=== PATIENT | male | born 1940 | race Caucasian/White ===

== ENCOUNTER 2018-04-23 20:00 | Observation (INO) | payer BC, MEDICARE ==
[2018-04-23 20:38] LABS: ABS Basophils 0.1 10^3/ul (0-0.2); ABS Eosinophils 0.2 10^3/ul (0-0.6); ABS Monocytes 0.5 10^3/ul (0-0.8); ABS Neutrophils 4.8 10^3/ul (1.5-7.7); ABS Nucleated RBC 0 10^3/ul; Eosinophil % 2.1 %; Hematocrit 41 % (42-52); Lymphocyte % 26.9 %; Mean Corpuscular HGB Conc 34 g/dl (31-36); Mean Corpuscular Hemoglobin 27 pg (27-31); Mean Corpuscular Volume 80 fL (80-94); Mean Platelet Volume 8.4 fL (7.4-10.4); Nucleated Red Blood Cells % 0; Platelet Count 199 10^3/ul (150-450); Red Blood Count 5.14 10^6/ul (4.00-5.40); Red Cell Distribution Width 15 % (10.5-15); White Blood Count 7.6 10^3/ul (3.5-10.8)
[2018-04-23 20:43] LABS: INR 0.95 (0.77-1.02)
[2018-04-23 20:59] LABS: Albumin 3.8 g/dL (3.2-5.2); Albumin/Globulin Ratio 1.4 (1-3); C Reactive Protein 3.58 mg/L (<8.01); Calcium 9.2 mg/dL (8.6-10.3); EGFR Non-African American 55.9 (>60); Globulin 2.7 g/dL (2-4); Potassium 3.5 mmol/L (3.5-5.0); Total Bilirubin 0.7 mg/dL (0.2-1.0); Total Protein 6.5 g/dL (6.4-8.9)
[2018-04-23] MEDS ORDERED: Ondansetron INJ* 2 MG/ML VIAL ONE (21:01)
[2018-04-23] MEDS ORDERED: Ondansetron INJ* 2 MG/ML VIAL IV ONE (21:03)
[2018-04-23 21:22] LABS: TSH (Thyroid Stimulating Horm) 8.96 mcIU/mL (0.34-5.60)
[2018-04-23] MEDS ORDERED: NS 0.9% 500 ML* 500 ML IV ONE (21:26)
[2018-04-23] MEDS ORDERED: Dextrose 50% Syringe 50 ML* 25 GM/50 ML SYRINGE IV PUSH PRN (23:18)
[2018-04-23] MEDS ORDERED: Senna TAB PO PRN (23:23)
[2018-04-23] MEDS ORDERED: Acetaminophen TAB* 325 MG PO PRN (23:23)
[2018-04-23] MEDS ORDERED: Ondansetron INJ* 2 MG/ML VIAL IV PRN (23:23)
[2018-04-23] MEDS ORDERED: Docusate CAP* 100 MG PO PRN (23:23)
[2018-04-23] MEDS ORDERED: Al Hydrox/Mg Hydrox/Simet LIQ* 30 ML UDC PO PRN (23:23)
[2018-04-23] MEDS ORDERED: Insulin GLARGINE(*) 1 UNITS UNIT SUBCUT SCH (23:45)
[2018-04-24 00:27] LABS: Free T4 1.1 ng/dL (0.61-1.12)
--- NOTE | 2018-04-24 02:24 | ED ---
Syncope/Near Syncope - HPI Summary HPI Summary: Patient complains of episode of syncope while sitting at the dining room table eating dinner tonight. Family states patient stopped responding, and suddenly looked pale. Family helped patient to the ground where he became unresponsive with eyes open staring off into space. Episode lasted for a couple minutes, and then patient came too and stated with unclear speech that he felt like he had to throw up. Family states patient has been reacting slowly and speaking slowly since event, but seemed to know where he was and recognizes everyone around him upon returning to consciousness. Patient denies any active symptoms at this time, denies any prior symptoms. Family states possible slurred speech , but denies any facial droop, observed focal deficits. Patient himself denies any focal deficits.. Patient medical history is prior CVA 4 years ago, DM, HTN , HDL, hypothyroid. Patient on aspirin 325 makes daily. Patient also states he took his Levemir and his Humalog at the same time this afternoon, normally takes Levemir in the a.m. Patient's are traveling from out of town. Family states patient ate less today than usual. EMS BGL 159. - History Of Current Complaint Chief Complaint: EDSyncope Time Seen by Provider: 04/23/18 20:15 Hx Obtained From: Patient, Family/Corporate Investigator Onset/Duration: Sudden Onset Timing: Minutes Context: Witnessed Activity At Onset: At Rest Associated Head Trauma: No Aggravating Factor(s): Nothing Alleviating Factor(s): Spontaneous Resolution - Allergies/Home Medications Allergies/Adverse Reactions: Allergies Allergy/AdvReac Type Severity Reaction Status Date / Time No Known Allergies Allergy Verified 04/23/18 20:06 Home Medications: Home Medications Aspirin EC TAB* [Ecotrin EC TAB*] 1 tab PO DAILY 04/23/18 [History Confirmed ] Doxazosin XL (NF) [Cardura XL (NF)] 4 mg PO BEDTIME 04/23/18 [History Confirmed 04/23/18] Esomeprazole Magnesium [Nexium 24Hr] 20 mg PO 1700 04/23/18 [History Confirmed 04/23/18] Insulin Detemir (NF) [Levemir (NF)] 20 unit SUBCUT BID 04/23/18 [History Confirmed 04/23/18] Insulin LISPRO* [HumaLOG*] 0 units SUBCUT DIRECTED 04/23/18 [History Confirmed 04/23/18] Levothyroxine TAB* [Synthroid TAB*] 25 mcg PO DAILY 04/23/18 [History Confirmed 04/23/18] Lipitor 1 tab PO BEDTIME 04/23/18 [History Confirmed 04/23/18] Lisinopril 40 mg PO DAILY 04/23/18 [History Confirmed 04/23/18] Metoprolol Succinate [Metoprolol Succinate ER] 25 mg PO DAILY 04/23/18 [History Confirmed 04/23/18] Niacin 500 mg Softgel 1 tab PO BEDTIME 04/23/18 [History Confirmed 04/23/18] Timolol Maleate [Istalol] 5 ml LEFT EYE 0800 04/23/18 [History Confirmed ] Travoprost [Travatan Z] 5 ml LEFT EYE BEDTIME 04/23/18 [History Confirmed ] amLODIPine TAB* [Norvasc 5 mg TAB*] 10 mg PO DAILY 04/23/18 [History Confirmed 04/23/18] PMH/Surg Hx/FS Hx/Imm Hx Endocrine/Hematology History: Denies: Hx Anticoagulant Therapy Cardiovascular History: Denies: Hx Cardiac Arrest History: Denies: Hx Dialysis EENT History: Denies: Hx Deafness Neurological History: Reports: Hx CVA Infectious Disease History: No Infectious Disease History: Denies: Traveled Outside the [place] in Last 30 Days - Family History Known Family History: Positive: Unknown - Social History Occupation: Retired Alcohol Use: None Substance Use Type: Reports: None Smoking Status (MU): Never Smoked Tobacco Review of Systems Constitutional: Negative Eyes: Negative ENT: Negative Cardiovascular: Negative Respiratory: Negative Gastrointestinal: Negative Genitourinary: Negative Musculoskeletal: Negative Skin: Negative Positive: Syncope Psychological: Normal All Other Systems Reviewed And Are Negative: Yes Physical Exam - Summary Physical Exam Summary: neuro exam normal. Physical exam unremarkable. Triage Information Reviewed: Yes Vital Signs On Initial Exam: Initial Vitals Temp Pulse Resp BP Pulse Ox 96.5 F 64 18 145/72 92 04/23/18 20:05 04/23/18 20:05 04/23/18 20:05 04/23/18 20:05 04/23/18 20:05 Vital Signs Reviewed: Yes Appearance: Positive: Well-Appearing Skin: Positive: Warm Head/Face: Positive: Normal Head/Face Inspection Eyes: Positive: Normal Neck: Positive: Supple Respiratory/Lung Sounds: Positive: Clear to Auscultation Cardiovascular: Positive: Normal Abdomen Description: Positive: Nontender Musculoskeletal: Positive: Normal Neurological: Positive: Normal Psychiatric: Positive: Normal AVPU Assessment: Alert - Cheryl Coma Scale Best Eye Response: 4 - Spontaneous Best Motor Response: 6 - Obeys Commands Best Verbal Response: 5 - Oriented Coma Scale Total: 15 Diagnostics - Vital Signs Vital Signs Temp Pulse Resp BP Pulse Ox 04/23/18 23:05 74 20 140/71 95 04/23/18 23:00 72 16 94 04/23/18 22:56 70 15 94 04/23/18 22:35 60 14 140/65 95 04/23/18 22:05 62 14 122/64 94 04/23/18 22:00 66 13 94 04/23/18 21:50 73 117/63 04/23/18 21:44 73 16 117/63 93 04/23/18 21:43 72 18 122/70 94 04/23/18 21:41 66 16 114/70 92 04/23/18 21:35 66 12 117/69 92 04/23/18 21:31 67 22 118/65 93 04/23/18 21:06 67 11 90 04/23/18 20:35 65 16 123/68 89 04/23/18 20:12 70 24 91 04/23/18 20:05 96.5 F 62 16 145/72 91 - Laboratory Lab Results: Lab Results 04/23/18 04/23/18 04/23/18 Range/Units 20:24 20:24 20:24 WBC 7.6 (3.5-10.8) 10^3/ul RBC 5.14 (4.00-5.40) 10^6/ul Hgb 14.0 (14.0-18.0) g/dl Hct 41 L (42-52) % MCV 80 (80-94) fL MCH 27 (27-31) pg MCHC 34 (31-36) g/dl RDW 15 (10.5-15) % Plt Count 199 (150-450) 10^3/ul MPV 8.4 (7.4-10.4) fL Neut % (Auto) 63.7 % Lymph % (Auto) 26.9 % Morrill % (Auto) 6.6 % Eos % (Auto) 2.1 % Baso % (Auto) 0.7 % Absolute Neuts (auto) 4.8 (1.5-7.7) 10^3/ul Absolute Lymphs (auto) 2.0 (1.0-4.8) 10^3/ul Absolute Monos (auto) 0.5 (0-0.8) 10^3/ul Absolute Eos (auto) 0.2 (0-0.6) 10^3/ul Absolute Basos (auto) 0.1 (0-0.2) 10^3/ul Absolute Nucleated RBC 0 10^3/ul Nucleated RBC % 0 INR (Anticoag Therapy) 0.95 (0.77-1.02) ABG pH (7.35-7.45) ABG pCO2 (35-45) mmHg ABG pO2 (80-100) mmHg ABG HCO3 (19-31) mmol/L ABG O2 Saturation (94.0-98.0) % ABG Base Excess (-2.0-2.0) mmol/L Sodium 139 (135-145) mmol/L Potassium 3.5 (3.5-5.0) mmol/L Chloride 105 (101-111) mmol/L Carbon Dioxide 27 (22-32) mmol/L Anion Gap 7 (2-11) mmol/L BUN 30 H (6-24) mg/dL Creatinine 1.25 H (0.67-1.17) mg/dL Est GFR ( Amer) 67.6 (>60) Est GFR (Non-Af Amer) 55.9 (>60) BUN/Creatinine Ratio 24.0 H (8-20) Glucose 136 H (70-100) mg/dL Calcium 9.2 (8.6-10.3) mg/dL Total Bilirubin 0.70 (0.2-1.0) mg/dL AST 13 (13-39) U/L ALT 14 (7-52) U/L Alkaline Phosphatase 57 (34-104) U/L Troponin I 0.01 (<0.04) ng/mL C-Reactive Protein 3.58 (<8.01) mg/L B-Natriuretic Peptide (<=100) pg/mL Total Protein 6.5 (6.4-8.9) g/dL Albumin 3.8 (3.2-5.2) g/dL Globulin 2.7 (2-4) g/dL Albumin/Globulin Ratio 1.4 (1-3) TSH 8.96 H (0.34-5.60) mcIU/mL Free T4 1.10 (0.61-1.12) ng/dL 04/23/18 04/23/18 Range/Units 20:24 21:25 WBC (3.5-10.8) 10^3/ul RBC (4.00-5.40) 10^6/ul Hgb (14.0-18.0) g/dl Hct (42-52) % MCV (80-94) fL MCH (27-31) pg MCHC (31-36) g/dl RDW (10.5-15) % Plt Count (150-450) 10^3/ul MPV (7.4-10.4) fL Neut % (Auto) % Lymph % (Auto) % Morrill % (Auto) % Eos % (Auto) % Baso % (Auto) % Absolute Neuts (auto) (1.5-7.7) 10^3/ul Absolute Lymphs (auto) (1.0-4.8) 10^3/ul Absolute Monos (auto) (0-0.8) 10^3/ul Absolute Eos (auto) (0-0.6) 10^3/ul Absolute Basos (auto) (0-0.2) 10^3/ul Absolute Nucleated RBC 10^3/ul Nucleated RBC % INR (Anticoag Therapy) (0.77-1.02) ABG pH 7.40 (7.35-7.45) ABG pCO2 43 (35-45) mmHg ABG pO2 63 L (80-100) mmHg ABG HCO3 25.9 (19-31) mmol/L ABG O2 Saturation 93.7 L (94.0-98.0) % ABG Base Excess 1.5 (-2.0-2.0) mmol/L Sodium (135-145) mmol/L Potassium (3.5-5.0) mmol/L Chloride (101-111) mmol/L Carbon Dioxide (22-32) mmol/L Anion Gap (2-11) mmol/L BUN (6-24) mg/dL Creatinine (0.67-1.17) mg/dL Est GFR ( Amer) (>60) Est GFR (Non-Af Amer) (>60) BUN/Creatinine Ratio (8-20) Glucose (70-100) mg/dL Calcium (8.6-10.3) mg/dL Total Bilirubin (0.2-1.0) mg/dL AST (13-39) U/L ALT (7-52) U/L Alkaline Phosphatase (34-104) U/L Troponin I (<0.04) ng/mL C-Reactive Protein (<8.01) mg/L B-Natriuretic Peptide 27 (<=100) pg/mL Total Protein (6.4-8.9) g/dL Albumin (3.2-5.2) g/dL Globulin (2-4) g/dL Albumin/Globulin Ratio (1-3) TSH (0.34-5.60) mcIU/mL Free T4 (0.61-1.12) ng/dL Result Diagrams: 04/23/18 20:24 04/23/18 20:24 Lab Statement: Any lab studies that have been ordered have been reviewed, and results considered in the medical decision making process. Course/Dx Course Of Treatment: Patient complains of episode of syncope while sitting at the dining room table eating dinner tonight. Family states patient stopped responding, and suddenly looked pale. Family helped patient to the ground where he became unresponsive with eyes open staring off into space. Episode lasted for a couple minutes, and then patient came too and stated with unclear speech that he felt like he had to throw up. Family states patient has been reacting slowly and speaking slowly since event, but seemed to know where he was and recognizes everyone around him upon returning to consciousness. Patient denies any active symptoms at this time, denies any prior symptoms. Family states possible slurred speech, but denies any facial droop, observed focal deficits. Patient himself denies any focal deficits.. Patient medical history is prior CVA 4 years ago, DM, HTN, HDL, hypothyroid. Patient on aspirin 325 makes daily. Patient also states he took his Levemir and his Humalog at the same time this afternoon, normally takes Levemir in the a.m. Patient's are traveling from out of town. Family states patient ate less today than usual. EMS BGL 159. physical exam:neuro exam normal. Physical exam unremarkable. O2 sats in the high 80s. Vital signs oth Labs unremarkable other than Elevated TSH, elevated creatinine, elevated BUN/creatinine ratio.. CT head negative. EKG sinus rhythm. Chest x-ray unremarkable. [place] [facility] [place]. - Diagnoses Provider Diagnoses: Syncope Discharge - Sign-Out/Discharge Documenting (check all that apply): Patient Departure - Discharge Plan Condition: Stable Disposition: ADMITTED TO [facility] - Billing Disposition and Condition Condition: STABLE Disposition: Admitted to [facility]
--- NOTE | 2018-04-24 03:23 | HP ---
CC: Dr. Dian Hdz, [facility], [place], [place] * HISTORY AND PHYSICAL: DATE OF ADMISSION: 04/23/18 TIME OF EVALUATION: 2200 PRIMARY CARE PHYSICIAN: Dr. Dian Hdz, [facility], [place], [place]. CHIEF COMPLAINT: Altered mental status, loss of consciousness. HISTORY OF PRESENT ILLNESS: This is a 77-year-old male with a past medical history of diabetes, hypertension, and TIA who presents to the emergency room with acute onset of altered mental status. His , who is at the bedside, provides most of the history. She states that they just drove up from [place] with a 4-hour drive, they stopped once, came to visit their daughter. They were having dinner with her. He had a small dinner, was relatively quiet. Shortly after eating a piece of fudge, they state he was sitting at the table, stopped communicating, started having gurgling noises and collapsed. They brought him down to the floor, his eyes stayed open and he was staring and diaphoretic. There was no jerking or muscle movement. About 5 minutes later, they did call EMS. He mumbled that he felt nauseated and began vomiting. The patient does remember vomiting, but does not remember the episode of collapsing. No bowel or bladder incontinence. By the time EMS arrived, he felt okay, but he was still very out of it. His glucose at that time was 159. He states he has felt this way when he has had a low sugar, but nothing this significant. Also of note, 6 weeks ago, he was admitted at [facility] in [place], [place], for a confusion episode. The states he was in his car waiting for her to get home, which is not unusual for him, and he was listening to the radio. She assumed he fell asleep, but when she arrived home, he got out of the car and he kept saying over and over that he just felt out of it. Because of this disorientation, he went to the hospital there. They state he had an echo done and an MRI of his brain there that showed an old stroke, but no acute findings on either imaging study. The patient denies any chest pain or shortness of breath. He feels better. He did drink more coffee than usual today; otherwise, nothing out of the ordinary. In the emergency room, the patient had labs and imaging and was referred to the hospitalist service for further evaluation. PAST MEDICAL HISTORY: \1. Hypothyroidism. 2. Hypertension. 3. Diabetes, on insulin. 4. GERD. 5. Hyperlipidemia. 6. History of a TIA. MEDICATIONS: 1. Levemir 20 units subcu b.i.d. 2. Lispro sliding scale a.c. 3. Lisinopril 40 mg daily. 4. Synthroid 25 mcg daily. 5. Cardura XL 4 mg at bedtime. 6. Aspirin 325 mg daily. 7. Amlodipine 10 mg daily. 8. Metoprolol succinate 25 mg daily. 9. Nexium 20 mg daily. 10. Niacin 1 tablet at bedtime. 11. Timolol 5 mL, left eye daily. 12. Lipitor 1 tab at bedtime. 13. Travoprost 5 mL, left eye at bedtime. ALLERGIES: No known drug allergies. SOCIAL HISTORY: As mentioned, the patient is from [place], lives at home with his , who is his healthcare proxy. No tobacco, alcohol or illicit drug use. He is independent of his ADLs. 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 REVIEW OF SYSTEMS: A 14-point review of systems as mentioned in the HPI; otherwise, negative. FAMILY HISTORY: Mother at age 64 from a stroke. Father from complications related to COPD. CODE STATUS: He is a full code. PHYSICAL EXAMINATION GENERAL: No acute distress, resting comfortably with his sitting at the bedside. VITAL SIGNS: Temp 96.5, pulse rate 58, respiratory rate 14, oxygen saturation 95% on room air, and blood pressure 140/65. HEENT: Head: Normocephalic. Pupils are equal and reactive; anicteric. Oropharynx: Mucous membranes moist. NECK: Supple. No lymphadenopathy. RESPIRATORY: Clear to auscultation. No wheezes, rhonchi, or rales. CARDIAC: Regular rate and rhythm. Soft systolic murmur heard throughout. ABDOMEN: Soft, nontender, and nondistended. EXTREMITIES: No clubbing, cyanosis or edema; +1 DPs. NEUROLOGIC: Alert and oriented x3. No gross focal neurologic deficits. Cranial nerves II through XII intact. Negative pronator drift. DIAGNOSTIC STUDIES/LAB DATA: Laboratory data: White count 7.6, hemoglobin 14 , hematocrit 41, platelets 199. INR 0.95. ABG, pH of 7.4, pCO2 of 43, pO2 of 63. Sodium 139, potassium 3.5, chloride 105, bicarb 27, BUN 30, creatinine 1.25 , glucose 136. Trop is 0.01. TSH is 8.96. BNP is 27. Radiographic data: Head CT showed age-related diffuse cerebral and cerebellar volume loss and chronic microvascular ischemic changes. No acute intracranial pathology. EKG shows normal sinus rhythm. Chest x-ray, elevated hemidiaphragm on the right. ASSESSMENT: This is a 77-year-old male with past medical history of diabetes, hypertension, and TIA who presents to the emergency room with a syncopal episode with collapse. 1. Syncope and collapse. Assessment: The patient's presentation and his recent history of a similar disorientation episode makes me suspicious that this may be a seizure disorder. It appears that he had an MRI and echo done 6 weeks ago that was unremarkable. He is currently back at his baseline with no neuro deficits. He is on a full dose of aspirin. He is not orthostatic. Plan : We will admit him to observation to telemetry, trend his troponin. I am awaiting to hear a call back from Neurology regarding if antiepileptic medication is indicated. I did order an EEG. I did put in a request for records for an MRI and echo as I do not think these warrant a repeat, but we will await the records and recommend following up with Neurology. We will continue him on a full-dose aspirin, seizure precautions and neuro checks, and check a lipid panel in the morning. Continue him on his atorvastatin and we will hold his lisinopril and amlodipine to allow for permissive hypertension in case this is possibly a stroke-related incident, but unlikely and his blood pressure was soft in the emergency room. 2. Elevated creatinine. Assessment: The patient with elevated BUN and creatinine, could be some volume depletion or this could be his baseline. I do not have any prior records to compare this to. Plan: We will check a FENa, renally dose his meds, hold the lisinopril for now. 3. Diabetes. Continue him on Lantus and Humalog sliding scale. 4. Hypothyroidism. His TSH is slightly elevated. We will continue the 25 and check a free T4. 5. Gastroesophageal reflux disorder. We will continue him on omeprazole in place of Nexium. 6. FEN. Place the patient on a diabetic diet. 7. DVT prophylaxis. The patient scores high risk and is placed on heparin subcu t.i.d. 8. Code status. Full code. PATIENT TIME: Greater than 60 minutes spent doing the history and physical, greater than half the time spent in direct patient contact. [id number]/[facility] #: [id number] MTDD
[2018-04-24] MEDS ORDERED: Levothyroxine TAB* 25 MCG TAB PO SCH (06:00)
[2018-04-24 06:16] LABS: ABS Basophils 0.1 10^3/ul (0-0.2); ABS Eosinophils 0 10^3/ul (0-0.6); ABS Lymphocytes 1.3 10^3/ul (1.0-4.8); ABS Monocytes 0.6 10^3/ul (0-0.8); ABS Neutrophils 6.3 10^3/ul (1.5-7.7); ABS Nucleated RBC 0 10^3/ul; Eosinophil % 0.5 %; Hematocrit 39 % (42-52); Hemoglobin 13.1 g/dl (14.0-18.0); Lymphocyte % 16.1 %; Mean Corpuscular HGB Conc 33 g/dl (31-36); Mean Corpuscular Hemoglobin 27 pg (27-31); Mean Corpuscular Volume 80 fL (80-94); Mean Platelet Volume 8.1 fL (7.4-10.4); Nucleated Red Blood Cells % 0.1; Platelet Count 202 10^3/ul (150-450); Red Cell Distribution Width 15 % (10.5-15); White Blood Count 8.3 10^3/ul (3.5-10.8)
[2018-04-24 06:37] LABS: Calcium 8.7 mg/dL (8.6-10.3); HDL Cholesterol 43.2 mg/dL; Potassium 4.1 mmol/L (3.5-5.0)
[2018-04-24 06:42] LABS: Urine Appearance Cloudy; Urine Bacteria 2+ (Absent); Urine Bilirubin Negative (Negative); Urine Blood 1+ (Negative); Urine Color Yellow; Urine Glucose Negative (Negative); Urine Ketones Negative (Negative); Urine Nitrite Positive (Negative); Urine Protein Negative (Negative); Urine Red Blood Cell Trace(0-2/hpf) (Absent); Urine Specific Gravity 1.018 (1.010-1.030); Urine Urobilinogen Negative (Negative); Urine White Blood Cell 2+(11-20/hpf) (Absent)
[2018-04-24 06:48] LABS: Urine Creatinine Concentration 149.36 mg/dL
[2018-04-24] MEDS: Heparin VIAL(*) 5000 UNITS/ML VIAL (FIVE THOUSAND) SUBCUT SCH ×2 (06:51→12:54)
[2018-04-24] MEDS ORDERED: Omeprazole CAP* 20 MG PO SCH (07:30)
[2018-04-24] MEDS ORDERED: TIMOLOL LEFT EYE SCH (08:00)
[2018-04-24] MEDS ORDERED: Metoprolol Succinate XL TAB* 25 MG PO SCH (09:00)
[2018-04-24] MEDS ORDERED: Aspirin EC TAB* 325 MG PO SCH (09:00)
[2018-04-24] MEDS: Insulin LISPRO* 1 UNITS UNIT SUBCUT SCH ×3 (09:42→17:52)
--- NOTE | 2018-04-24 10:14 | PN ---
Progress Note - Progress Note Date of Service: 04/23/18 Note: Final radiology read for chest xray shows low lung volume. Pt. admitted for syncope. No change in treatment needed.
[2018-04-24 15:17] VITALS: BP 101/48
[2018-04-24] MEDS ORDERED: Latanoprost 0.005%* 2.5 ml BTL LEFT EYE SCH (21:00)
[2018-04-24] MEDS ORDERED: Atorvastatin* 40 MG TAB PO SCH (21:00)
--- NOTE | 2018-04-24 21:11 | EEG ---
ELECTROENCEPHALOGRAPHY: DATE OF STUDY: 04/24/18 REFERRING PHYSICIAN: Dr. Milligan. LOCATION: He is an inpatient in room 441. CLINICAL PROBLEM: Episode of loss of consciousness the day before this recording. The patient was apparently eating dinner and looked pale and was ease to the floor by his family. He was unresponsive with eyes open. He had taken insulin apparently two doses before dinner. MEDICATIONS: Include insulin, omeprazole, timolol, aspirin, metoprolol, atorvastatin, levothyroxine, Zofran. REPORT: This 16-channel EEG is remarkable for background rhythms consisting of a reasonably well formed alpha rhythm in the posterior derivations at about 8 and a half cycles per second, which is symmetric. Moderate voltage bifrontal beta rhythms are noted and are symmetric. Occasional central and bitemporal slowing is noted, but the patient does not appear to sleep. There is some sweat and muscle artefact early in the tracing which resolves. There are no clinical events. There are no focal, lateralized, or epileptiform abnormalities. CLINICAL IMPRESSION: Normal awake and drowsy EEG. [id number]/[facility] #: [id number] [facility] CENTERKika
--- NOTE | 2018-04-24 21:28 | CONS ---
NEUROLOGY CONSULTATION: DATE OF CONSULT: 04/24/18 LOCATION: He is in room 441. REFERRING PHYSICIAN: Dr. Milligan. CHIEF COMPLAINT: Episode of loss of consciousness. HISTORY OF PRESENT ILLNESS: Neil Olivares is a 77-year-old man who was in his usual state of health yesterday at the dinner table. They had travelled from [place] to visit with their daughter. He started to feel as though he might be getting hypoglycemic. He had not eaten very much and they had been traveling for quite a while. He had taken both of his morning doses of insulin a little late before he ate, which is about 15-20 minutes before that. He ate a piece of fudge and the next thing he knew he was on the floor and had vomited. His and daughter are present. They stated that he had a glazed look on his face and said he did not feel well. He subsequently lost consciousness and made some guttural noises. They lowered him to the floor. He was out for anywhere from 2 to 5 minutes. He came to and was a bit confused and vomited. He was very pale and diaphoretic before they laid him down. There was no jerking or stiffening. He recalls not feeling well and the next thing he recalls is being on the floor. He felt that he knew where he was. His family feel that it took him about 20 to 30 minutes to really start acting completely normally. His blood glucose when guest relations associate got there was over 140. He has never passed out before. He has had episodes of hypoglycemia, which he treats by eating. He has never had a seizure. He had a stroke about 4-1/2 to 5 years ago causing some left-sided weakness. He had another episode a few weeks ago in [place] where he had a confusional waking upon getting out of the car. He had been waiting in the car for his and had fallen asleep. Engine was not running. He was evaluated at a local hospital and told it showed an old stroke. There is no history of cardiac disease. PAST MEDICAL HISTORY: Notable for diabetes for many years, hypothyroidism, hypertension, gastroesophageal reflux, glaucoma. MEDICATIONS AT HOME: Consist of: 1. Levemir b.i.d. 2. Lispro sliding scale. 3. Lisinopril 40 mg p.o. daily. 4. Synthroid 25 mcg p.o. daily. 5. Cardura XL 4 mg p.o. daily. 6. Aspirin 325 mg p.o. daily. 7. Amlodipine 10 mg p.o. daily. 8. Metoprolol 25 mg p.o. daily. 9. Nexium 20 mg p.o. daily. 10. Niacin 1 tablet nightly. 11. Timolol eye drops. 12. Lipitor 1 p.o. q.h.s. 13. Travoprost eye drops. ALLERGIES: He does not have any drug allergies. SOCIAL HISTORY: He is retired and his still works. He does not smoke and he does not drink. REVIEW OF SYSTEMS: Negative for headaches, change in vision, numbness or difficulty walking. He tends to sleep only 2 to 3 hours at a time, which is a longstanding habit. He feels that he gets adequate rest. PHYSICAL EXAMINATION: He is well hydrated and well nourished. Temperature 97.4 , blood pressure 101/48, heart rate about 60 and regular, respiratory rate is 14 , and oxygen saturation is 92% on room air. Heart is in a regular rhythm without murmurs heard. There are no cervical bruits. Lungs are clear. Neurological Exam: Pupils, fundi, and eye movements are normal. Funduscopic exam does not reveal any hemorrhages. Visual mensah are full to confrontation. Facial musculature is symmetric. Facial sensation to light touch is symmetric. Palate and tongue appear normal. There is no oral trauma. Speech is clear without dysarthria. He is a little hard of hearing. Motor exam reveals normal strength proximally and distally in upper and lower extremities. There is no rest or suspension tremor. [id number] maneuver is normal bilaterally, as is [id number] maneuver. Sensory exam in the limbs is intact light touch and pin discrimination. Reflexes are intact and symmetric and little brisker in the left biceps and knees than the right. Ankle reflexes are depressed. Plantar responses are flexor on the right and extensor on the left. He is alert and oriented and a good detailed historian. Memory is intact and language is fluent. He has adequate attention, concentration, fund of knowledge. DIAGNOSTIC STUDIES/LAB DATA: Includes a CT of the brain, which is interpreted as age related diffuse cerebral and cerebellar volume loss and chronic microvascular ischemic changes. I reviewed the images and that looks fairly normal for age to me. EKG is reviewed and is in normal sinus rhythm. Other laboratory data notable for normal CBC other than borderline anemia with a hemoglobin of 13.1. Chemistries notable for glucose of 185 this morning. Creatinine is elevated at 1.21 and BUN at 29. Cholesterol is 150 and LDL 90. Atrial blood gas yesterday was a pH 7.4, pCO2 of 43, pO2 low at 63. Urinalysis is normal for 1+ blood, positive nitrite, 1+ leukocyte esterase, 2+ bacteria, and 2+ white blood cells. IMPRESSION AND PLAN: Impression is that of a syncopal episode. He had an EEG earlier, which I reviewed and the formal report is not back, but it looks to be a normal EEG. He may have had an arrhythmia or hypoglycemic episode. If he is felt to be cleared from a cardiac perspective, I think he could be discharged home. I do not see any evidence to support diagnosis of epilepsy or new cerebrovascular event. I will discuss my impression with the hospitalist. [id number]/[facility] #: [id number] JEREMIAS
[2018-04-25] MEDS ORDERED: EYE LEFT EYE SCH (08:00)
[2018-04-25] MEDS ORDERED: TIMOLOL 0.5% LEFT EYE SCH (08:00)
--- NOTE | 2018-04-25 17:24 | DS ---
CC: Dr. Dian Hdz* DISCHARGE SUMMARY: DATE OF ADMISSION: 04/23/18 DATE OF DISCHARGE: 04/24/18 PRIMARY CARE PROVIDER: Dr. Dian Hdz, [facility], [place], [place]. ATTENDING PHYSICIAN: Dr. Cm Moffett * (dictated by Kirstie Zhao NP) . PRIMARY DIAGNOSIS: Syncope. SECONDARY DIAGNOSES: 1. Hypertension. 2. Diabetes mellitus type 2. 3. Hypothyroidism. 4. Gastroesophageal reflux disease. 5. History of transient ischemic attack. STUDIES WHILE IN THE HOSPITAL: 1. Chest x-ray on 04/23/18 reads as low lung volumes, no evidence for acute findings. 2. EKG on 04/23/18 shows normal sinus rhythm with a rate of 63, QTc 462, no ischemic changes. 3. Brain CT on 04/23/18 reads as there is age-related diffuse cerebral and cerebellar volume loss and chronic microvascular ischemic disease. No acute intracranial pathology. 4. EEG on 04/24/18 reads as normal awake and drowsy EEG. CONSULTATIONS WHILE IN THE HOSPITAL: The patient was seen in consultation by Dr. Huerta from Neurology on 04/24/18 for concern for seizure activity. HISTORY OF PRESENT ILLNESS AND HOSPITAL COURSE: Mr. Olivares is a 77-year-old male with past medical history of hypertension, diabetes, GERD, hypothyroidism, and TIA, who presented to the emergency room on 04/23/18 with complaints of acute changes in mental status and loss of consciousness. Please see the history and physical by Dr. Milligan for a complete summary and events leading up to this hospitalization. In short, the patient was having dinner when he suddenly stopped communicating, started making gurgling noises and collapsed. His family assisted him to the floor. During this event, his eyes were open and he was staring and diaphoretic. There was no jerking or muscle movement. His family called EMS. The patient did have an episode of vomiting. Glucose checked by EMS was 159. I will note that approximately 6 weeks ago the patient was admitted in a hospital in [place] for an episode of confusion. At that point, he had an echo and an MRI that showed an old stroke, though there were no other acute findings on imaging. In the emergency room, the patient had mostly unremarkable workup except for an elevated creatinine at 1.21. It is unknown what the patient's baseline creatinine is, as he has never been hospitalized at this facility before. Records were requested from his previous hospitalization in [place], though those records were not able to be obtained. Orthostatic vitals were checked, which were negative. The patient was admitted by the hospitalist service. Because of the patient's presentation, there was concern for seizure activity and Neurology was consulted. The patient was seen by Dr. Huerta after having an EEG, which was normal. Dr. Huerta felt as though the episode did not represent a seizure or new cerebrovascular accident and felt as though the patient was stable for discharge from a neurology standpoint. The patient was monitored on telemetry and had no arrhythmias. I will note that upon arrival to the emergency room, the patient had a systolic pressure mostly in the 110s. For that reason, his lisinopril, Cardura, and amlodipine were held. He was continued on his metoprolol. As of the day of discharge, the patient's blood pressure has been in the one-teens to 120 systolic, on metoprolol only. For this reason, I believe that polypharmacy may have played a role in this syncopal event. Because the patient's blood pressure is so well managed on 1 agent and he was taking 4 agents that would lower his blood pressure, I am concerned that he may have had an episode of hypotension at home. As of today, the patient reports feeling well. He is anxious to be discharged as he needs to return home to [place] and has a 4-[address]. He has had no dizziness or diaphoresis and has been up ambulating around the unit. The patient did have a urinalysis indicative of a urinary tract infection, though was asymptomatic and showed no signs of infection, so was initially not treated; however, his urine culture did come back with greater than 100,000 colonies of Enterobacter cloacae and therefore will be started on antibiotics. Mr. Olivares is stable for discharge today. Vital signs are as follows: Temp 97.4, heart rate 59, respiratory rate 14, oxygen saturation 92% on room air, blood pressure 101/48. DISCHARGE MEDICATIONS: New medications: 1. Ciprofloxacin 250 mg p.o. b.i.d. x7 days. Continued home medications: 1. Aspirin 325 mg p.o. daily. 2. Esomeprazole 20 mg p.o. daily. 3. Levemir 20 units subcu b.i.d. 4. Lispro subcu as previously directed. 5. Levothyroxine 25 mcg p.o. daily. 6. Lipitor 1 tablet at bedtime (strength is unknown). 7. Metoprolol succinate 25 mg p.o. daily. 8. Niacin 500 mg p.o. at bedtime. 9. Timolol 5 mL left eye daily. 10. Travoprost 5 mL left eye at bedtime. Discontinued medications: 1. Lisinopril. 2. Cardura. 3. Amlodipine. DISCHARGE PLAN: Mr. Olivares will be discharged back home. Activity will be as tolerated. Diet will be heart healthy. Medications are noted above. I have stopped the patient's Cardura, lisinopril, and amlodipine because of the concern for medication-induced hypotension. He should continue his metoprolol. I have prescribed a 7-day course of Cipro for his urinary tract infection. I did call the script into the patient's pharmacy and did speak with the regarding this. He can continue his other usual medications. I have advised him to check his blood pressure twice daily. He will need to follow up with his PCP in 4 to 7 days and they should discuss blood pressure management at that time. The patient has been advised to return to the emergency room or nearest hospital for any worsening of symptoms, shortness of breath, lightheadedness, dizziness, chest discomfort, high fevers, chills, night sweats , loss of consciousness, or any other worrisome signs or symptoms. This is a summarized report of a complex medical history and hospital stay. For further details, please see the entire medical record. TIME SPENT: Approximately 40 minutes were spent on this discharge, greater than half of that time spent [id number] with the patient and his discussing discharge plans and instructions. KIRSTIE ZHAO NP [id number]/[facility] #: [id number] JEREMIAS
== END 2018-04-24 19:35 | disposition home or self-care (01) ==
LOC: ED 20:00 → MEDTELE 23:23
PROVIDERS: ADMIT Pediatrics; ATTEND Student in an Organized Health Care Education/Training Program
DX: R55 Syncope and collapse (principal); I10 Essential (primary) hypertension; E11.9 Type 2 diabetes mellitus without complications; E03.9 Hypothyroidism, unspecified; K21.9 Gastro-esophageal reflux disease without esophagitis; Z86.73 Personal history of transient ischemic attack (TIA), and cerebral infarction without residual deficits; Z79.82 Long term (current) use of aspirin; E78.5 Hyperlipidemia, unspecified
CPT/HCPCS: 36415; 70450; 71046; 80048; 80053; 80061; 81003; 81015; 82570; 82803; 83605; 83880; 84300; 84439; 84443; 84484; 85025; 85610; 86140; 87077; 87086; 87186; 93005; 95816; 96372; 96374; 96375; 99285; A9270-GY; G0378; J1644; J2405